=== PATIENT | female | born 1995 | race Caucasian/White ===

== ENCOUNTER 2017-04-20 17:30 | Emergency (ER) | payer OTHER ==
--- NOTE | 2017-04-20 17:32 | PDOC ---
History of Present Illness - General History Source: Patient Exam Limitations: No Limitations - History of Present Illness Initial Comments: 04/20/17 17:56 21 y/o F with no PMHx presents to the ED with pelvic pressure for 3 weeks. She states the pressure feels crampy and like she is discharging, but denies vaginal bleeding or discharge. Patient reports she went to her nurse at [facility] regarding the pain who told her to go to the ED. Patient has an upcoming appointment with her application support developer. She does not take vitamins because they make her vomit. Denies alcohol, tobacco, or drug use. Patient denies nausea, vomiting, diarrhea. Denies fever, chills. Denies chest pain, SOB. <Melania Taylor - Last Filed: 04/20/17 18:58> - General History Source: Patient Exam Limitations: No Limitations <Nasra Smith - Last Filed: 04/21/17 10:19> - General Chief Complaint: ,Possible Stated Complaint: , FEELING PELVIS PRESSURE Time Seen by Provider: 04/20/17 17:32 Past History <Melania Taylor - Last Filed: 04/20/17 18:58> - Past Medical History Asthma: Yes - Immunization History Immunization Up to Date: Yes - Suicide/Smoking/Psychosocial Hx Smoking History: Never smoked Have you smoked in the past 12 months: No Hx Alcohol Use: No Drug/Substance Use Hx: No Substance Use Type: None <Nasra Smith - Last Filed: 04/21/17 10:19> - Past Medical History Allergies/Adverse Reactions: Allergies Allergy/AdvReac Type Severity Reaction Status Date / Time No Known Allergies Allergy Verified 04/20/17 17:32 Home Medications: Ambulatory Orders Cephalexin Monohydrate [Keflex -] 250 mg PO Q8H #15 capsule 04/20/17 Review of Systems - Review of Systems Able to Perform ROS?: Yes Comments:: 04/20/17 17:56 GENERAL/CONSTITUTIONAL: No: fever, chills, weakness, loss of appetite. HEAD, EYES, EARS, NOSE AND THROAT: No: change in vision, ear pain, discharge, sore throat, throat swelling. CARDIOVASCULAR: No: chest pain, lightheadedness, palpitations, syncope RESPIRATORY: No: cough, shortness of breath, wheezing, hemoptysis, stridor. GASTROINTESTINAL: No: nausea, vomiting, abdominal cramping, diarrhea, rectal bleeding, constipation. GENITOURINARY: (+) pelvic pressure. No: dysuria, hematuria, frequency, urgency, flank pain. MUSCULOSKELETAL: No: back pain, neck pain, joint pain, muscle swelling or pain SKIN AND BREASTS: No: lesions, pallor, rash or easy bruising. NEUROLOGIC: No: headache, vertigo, paresthesias, weakness ENDOCRINE: No: unexplained weight gain or loss HEMATOLOGIC/LYMPHATIC: No: anemia, easy bleeding, swelling nodes <ClaudiaMelania A - Last Filed: 04/20/17 18:58> *Physical Exam - Vital Signs Last Vital Signs Temp Pulse Resp BP Pulse Ox 98.1 F 103 H 16 110/72 100 04/20/17 17:31 04/20/17 17:31 04/20/17 17:31 04/20/17 17:31 04/20/17 17:31 - Physical Exam Comments: 04/20/17 17:57 GENERAL: The patient is in no acute distress. HEAD: Normal with no signs of trauma. EYES: PERRLA, EOMI, sclera anicteric, conjunctiva clear. ENT: Ears normal, nares patent, oropharynx clear without exudates. Moist mucous membranes. NECK: Normal range of motion, supple without lymphadenopathy, JVD, or masses. LUNGS: Breath sounds equal, clear to auscultation bilaterally. No wheezes, and no crackles. HEART:Regular rate and rhythm, normal S1 and S2 without murmur, rub or gallop. ABDOMEN: Gravid abdomen, no lower abdominal tenderness. normoactive bowel sounds. No guarding, no rebound. EXTREMITIES: Normal range of motion, no edema. No clubbing or cyanosis. No erythema, or tenderness. NEUROLOGICAL: Cranial nerves II through XII grossly intact. Normal speech. No focal neurological deficits. MUSCULOSKELETAL: Back non-tender to palpation, no CVA tenderness SKIN: Warm, Dry, normal turgor, no rashes or lesions noted. <ClaudiaMelania A - Last Filed: 04/20/17 18:58> ED Treatment Course - RADIOLOGY Radiograph Interpretation: 04/20/17 18:58 Limited US reported by Dr. Holden Vaughan Impression: Single live intrauterine gestation of 14 weeks 6 days gestational age. <Melania Taylor - Last Filed: 04/20/17 18:58> Medical Decision Making - Medical Decision Making 04/20/17 17:32 A portion of this note was documented by scribe services under my direction. I have reviewed the details of the note, within reason, and agree with the documentation with the following case summary and management plan written by me. Nursing documentation reviewed and incorporated into medical decision making This patient is a 21-year-old otherwise healthy presenting to emergency Department with pelvic pain, lower abdominal pain, back pain. Patient states her symptoms have been present for the past 3 weeks. No fevers, no chills. No dysuria. No abnormal discharge On examination: No abdominal tenderness to palpation Nml external genitalia scant discharge noted (not malodorous) - swabs sent Os difficult to locate No CMT, no adnexal fullness 04/20/17 18:39 Laboratory Tests 04/20/17 18:00 Urine Blood Trace-intact H Urine Nitrite Negative Urine RBC 1-2 Urine WBC 2-5 04/20/17 19:17 Transvaginal ultrasound demonstrates Single live intrauterine with measurements corresponding to gestational age of 14 weeks 6 days. heart rate is 151 bpm. Placenta is in location, adequate amniotic fluid. Fetus in breech position at this time. Cervical length 3.9 cm. UA ? positive Will give Keflex Will discharge to home Will ask pt to follow up with corking machine operator tomorrow or the following day Clinical impression: pain in <Nasra Smith - Last Filed: 04/21/17 10:19> *DC/Admit/Observation/Transfer - Attestations Scribe Attestion: 04/20/17 17:57 Documentation prepared by Melania Taylor, acting as hospital medical biller for Nasra Smith MD. <Melania Tayolr - Last Filed: 04/20/17 18:58> - Discharge Dispostion Admit: No <Nasra Smith - Last Filed: 04/21/17 10:19> Diagnosis at time of Disposition: Qualifiers: Weeks of gestation: 14 weeks Qualified Code(s): Z3A.14 - 14 weeks gestation of UTI (urinary tract infection) Qualifiers: Urinary tract infection type: acute cystitis Hematuria presence: without hematuria Qualified Code(s): N30.00 - Acute cystitis without hematuria - Discharge Dispostion Disposition: HOME Condition at time of disposition: Stable - Prescriptions Prescriptions: Cephalexin Monohydrate [Keflex -] 250 mg PO Q8H #15 capsule - Patient Instructions Printed Discharge Instructions: Common Discomforts and Bodily Changes During , DI for Urinary Tract Infection (UTI), DI for Abdominal Pain -- Early , Support Garment May Reduce Back Pain Discomfort During , DI for -- Discomforts and Remedies Additional Instructions: Thank you for coming in to the ER Please follow up with your doctor in 1-2 days Please return to the ER for ANY concerns or complaints Please review all your results You may have a mild Urinary Tract Infection Please take antibiotics as prescribed
[2017-04-20 17:39] VITALS: BP 110/72; PULSE 103; TEMP 98.1; BMI 22.6
[2017-04-20 18:22] LABS: URINE APPEARANCE Clear; URINE BILIRUBIN Negative (NEGATIVE); URINE GLUCOSE (UA) Negative (NEGATIVE); URINE KETONE Negative (NEGATIVE); URINE NITRITE Negative (NEGATIVE); URINE PROTEIN Negative (NEGATIVE); URINE UROBILINOGEN 0.2 (0.2-1.0)
[2017-04-20 18:23] LABS: URINE BLOOD Trace-intact (NEGATIVE); URINE COLOR YELLOW; URINE LEUK ESTERASE TRACE (NEGATIVE)
[2017-04-20 18:33] LABS: URINE BACTERIA FEW /hpf (NEGATIVE)
[2017-04-20] MEDS ORDERED: ACETAMINOPHEN 325 MG TABLET (FP) PO ONE (19:03)
[2017-04-20] MEDS ORDERED: ACETAMINOPHEN 325 MG TABLET (FP) ONE (19:18)
== END 2017-04-20 19:35 | disposition home or self-care (01) ==
LOC: FER 17:30
DX: O26.892 Other specified pregnancy related conditions, second trimester (principal); Z3A.14 14 weeks gestation of pregnancy; N30.00 Acute cystitis without hematuria
CPT/HCPCS: 36415; 76815-TC; 81003; 81015; 87070; 87077; 87086; 87205; 87491; 87591; 99281-25

== ENCOUNTER 2017-05-05 19:56 | Emergency (ER) | payer OTHER ==
--- NOTE | 2017-05-05 19:59 | PDOC ---
History of Present Illness - General History Source: Patient, Old Records Exam Limitations: No Limitations - History of Present Illness Initial Comments: 05/05/17 20:13 The patient is a 21 year old, 16 weeks female, accompanied by friends, with a past medical history of asthma, who presents to the emergency department today with vaginal bleeding. The patient states that she was going to the bathroom and when she wiped herself she noticed blood on the toilet paper and immediately became concerned. The patient reports associated intermittent dysuria. The patient states that her blood type is O negative. Her last OBGYN appointmet was two months ago and she was suppose to see her OBGYN this week but had to call to reschedule. <Arvind Colin - Last Filed: 05/05/17 20:13> <Radha Mcmahon - Last Filed: 05/06/17 01:32> - General Chief Complaint: Vaginal Bleeding Stated Complaint: SPOTTING WITH Past History <Arvind Colin - Last Filed: 05/05/17 20:13> - Past Medical History Asthma: Yes - Immunization History Immunization Up to Date: Yes - Suicide/Smoking/Psychosocial Hx Smoking History: Never smoked Have you smoked in the past 12 months: No Hx Alcohol Use: No Drug/Substance Use Hx: No Substance Use Type: None <Radha Mcmahon - Last Filed: 05/06/17 01:32> - Past Medical History Allergies/Adverse Reactions: Allergies Allergy/AdvReac Type Severity Reaction Status Date / Time No Known Allergies Allergy Verified 04/20/17 17:32 Home Medications: Ambulatory Orders Nitrofurantoin Monohyd/M-Cryst [Macrobid -] 100 mg PO BID #14 capsule 05/05/17 Review of Systems - Review of Systems Able to Perform ROS?: Yes Comments:: 05/05/17 20:21 GENERAL/CONSTITUTIONAL: No fever or chills. No weakness. HEAD, EYES, EARS, NOSE AND THROAT: No change in vision. No ear pain or discharge. No sore throat. GASTROINTESTINAL: No nausea, vomiting, diarrhea or constipation. GENITOURINARY: (+) Dysuria, vaginal bleeding. No frequency, or change in urination. CARDIOVASCULAR: No chest pain or shortness of breath. RESPIRATORY: No cough, wheezing, or hemoptysis. MUSCULOSKELETAL: No joint or muscle swelling or pain. No neck or back pain. SKIN: No rash NEUROLOGIC: No headache, vertigo, loss of consciousness, or change in strength/ sensation. ENDOCRINE: No increased thirst. No abnormal weight change. HEMATOLOGIC/LYMPHATIC: No anemia, easy bleeding, or history of blood clots. ALLERGIC/IMMUNOLOGIC: No hives or skin allergy. <Arvind Colin - Last Filed: 05/05/17 20:13> *Physical Exam - Physical Exam Comments: 05/05/17 20:22 GENERAL: Awake, alert, and fully oriented, in no acute distress HEAD: No signs of trauma EYES: PERRLA, EOMI, sclera anicteric, conjunctiva clear ENT: Auricles normal inspection, hearing grossly normal, nares patent, oropharynx clear without exudates. Moist mucosa NECK: Normal ROM, supple, no lymphadenopathy, JVD, or masses LUNGS: Breath sounds equal, clear to auscultation bilaterally. No wheezes, and no crackles HEART: Regular rate and rhythm, normal S1 and S2, no murmurs, rubs or gallops ABDOMEN: Soft, nontender, normoactive bowel sounds. No guarding, no rebound. No masses EXTREMITIES: Normal range of motion, no edema. No clubbing or cyanosis. No cords, erythema, or tenderness NEUROLOGICAL: Cranial nerves II through XII grossly intact. Normal speech, normal gait SKIN: Warm, Dry, normal turgor, no rashes or lesions noted. <Arvind Colin - Last Filed: 05/05/17 20:13> ED Treatment Course - LABORATORY CBC & Chemistry Diagram: 05/05/17 20:20 05/05/17 20:20 <Radha Mcmahon - Last Filed: 05/06/17 01:32> Medical Decision Making - Medical Decision Making 05/05/17 20:11 Pt is tearful. Saw some blood when she wiped at the bathroom. , blood type O -negative; she states that she fears she is having a miscarriage. HSe reports some burning with urination on and off. No abd pain. She has no surgeries in the past and no other medical problems. SHe went to see a MICA LAMINATING MACHINE FEEDER in [facility] 8 weeks ago and missed the appointment with the station baggage agent earlier this week and called to reschedule, but nobody picked up the phone. Pt will have basic labs and she will be given Rhogam and we will check UA and get an ultrasound to evaluate the fetus and the position of the placenta. 05/05/17 23:15 Patient Name: TAM MOFFETT THIS IS A PRELIMINARY REPORT FROM [facility] DATE OF SERVICE: 2017-05-05 20:25:49 IMAGES: 24 EXAM: OB Ultrasound >/=14 wks single fetus Single live intrauterine Gestational age 16 weeks 4 days heart rate 148 bpm Closed cervix 4.8 cm long Breech presentation Posterior placenta without previa JASE 11.1, within normal limits THIS DOCUMENT HAS BEEN ELECTRONICALLY SIGNED 05/06/17 01:32 Pt kiran herr and she will follow with her MICA LAMINATING MACHINE FEEDER. Macrobid for UTI. <Radha Mcmahon - Last Filed: 05/06/17 01:32> *DC/Admit/Observation/Transfer - Attestations Scribe Attestion: 05/05/17 20:22 Documentation prepared by Arvind Colin, acting as medical coding auditor for Radha Mcmahon MD. <Arvind Colin - Last Filed: 05/05/17 20:13> - Discharge Dispostion Admit: No <Radha Mcmahon - Last Filed: 05/06/17 01:32> Diagnosis at time of Disposition: Threatened , UTI (urinary tract infection), , Need for rhogam due to Rh negative mother - Discharge Dispostion Disposition: HOME Condition at time of disposition: Stable - Prescriptions Prescriptions: Nitrofurantoin Monohyd/M-Cryst [Macrobid -] 100 mg PO BID #14 capsule - Patient Instructions Printed Discharge Instructions: Rh Explained, DI for Threatened
[2017-05-05 20:31] VITALS: BP 102/63; PULSE 88; TEMP 98.7; BMI 22.6
[2017-05-05 20:42] LABS: BASOPHIL 0.6 % (0-2.0); EOSINOPHIL 1.2 % (0-4.5); MCH 30.1 pg (25.7-33.7); MEAN CELL VOLUME 88.7 fl (80-96); MEAN PLT VOLUME 10.2 fl (7.5-11.1); NEUTROPHILS 74.1 % (42.8-82.8); PLATELET COUNT 280 K/MM3 (134-434); RDW 12.9 % (11.6-15.6); WHITE BLOOD COUNT 15.1 K/mm3 (4.0-10.8)
[2017-05-05 20:43] LABS: URINE APPEARANCE Clear; URINE BILIRUBIN Negative (NEGATIVE); URINE BLOOD Negative (NEGATIVE); URINE COLOR YELLOW; URINE GLUCOSE (UA) Negative (NEGATIVE); URINE KETONE Negative (NEGATIVE); URINE LEUK ESTERASE TRACE (NEGATIVE); URINE NITRITE Negative (NEGATIVE); URINE PROTEIN Negative (NEGATIVE); URINE UROBILINOGEN 0.2 (0.2-1.0)
[2017-05-05 21:01] LABS: INR 0.96 (0.82-1.09); PROTHROMBIN TIME (PATIENT) 10.8 SEC (10.2-13.0)
[2017-05-05 21:05] LABS: ALBUMIN 3.7 g/dl (3.5-5.0); ALK PHOS 57 U/L (32-92); ANION GAP 8 (8-16); BILIRUBIN,TOTAL 0.3 mg/dl (0.2-1.0); CALCIUM 9.2 mg/dl (8.4-10.2); CO2 22 mmol/L (22-28); CREATININE 0.5 mg/dl (0.6-1.3); GLUCOSE,RANDOM 96 mg/dl (74-106); SGOT/AST 33 U/L (10-42); SGPT/ALT 29 U/L (10-40); TOT PROT 7.3 g/dl (6.4-8.3)
[2017-05-05] MEDS ORDERED: RHO(D) IMMUNE GLOBULIN 1,500 UNIT DISP.SYRIN IM ONE (21:06)
[2017-05-05] MEDS ORDERED: NITROFURANTOIN MACROCRYSTAL 50 MG CAPSULE (FP) ONE (21:10)
[2017-05-05 21:15] LABS: URINE RBC 0-2 /hpf (0-3)
[2017-05-05] MEDS ORDERED: NITROFURANTOIN MACROCRYSTAL 50 MG CAPSULE (FP) PO SCH (21:15)
== END 2017-05-05 23:31 | disposition home or self-care (01) ==
LOC: FER 19:56
PROC: 3E023GC Introduction of Other Therapeutic Substance into Muscle, Percutaneous Approach (ICD-10-PCS; principal; 2017-05-05)
DX: O26.892 Other specified pregnancy related conditions, second trimester (principal); N39.0 Urinary tract infection, site not specified; O20.0 Threatened abortion; Z3A.16 16 weeks gestation of pregnancy
CPT/HCPCS: 36415; 76801-TC; 80053; 81003; 81015; 84702; 85025; 85610; 86850; 86900; 86901; 86999; 96372; 99282-25; J1561